=== PATIENT | female | born 1955 | race Caucasian/White ===

== ENCOUNTER 2019-12-02 05:29 | Day surgery (SDC) | payer MEDICARE, BC ==
[2019-11-29 12:37] LABS: BASOPHILS # (AUTO) 0.07 x10^3/uL (0-0.1); BASOPHILS % (AUTO) 2 % (0-1); EOSINOPHILS # (AUTO) 0.38 x10^3/uL (0-0.4); EOSINOPHILS % (AUTO) 8 % (1-7); LYMPHOCYTES # (AUTO) 1.67 x10^3/uL (1-3.4); LYMPHOCYTES % (AUTO) 36 % (22-44); MD NO; MEAN CORPUSCULAR HEMOGLOBIN 28.5 pg (27.0-34.8); MEAN CORPUSCULAR HGB CONC 33.2 g/dL (32.4-35.8); MEAN CORPUSCULAR VOLUME 85.8 fL (80-100); MEAN PLATELET VOLUME 8.3 fL (7.4-10.4); MONOCYTES # (AUTO) 0.61 x10^3/uL (0.2-0.8); MONOCYTES % (AUTO) 13 % (2-9); NEUTROPHILS % (AUTO) 41 % (42-75); PLATELET COUNT 304 x10^3/uL (130-400); RED BLOOD COUNT 4.66 x10^6/uL (3.82-5.3); RED CELL DISTRIBUTION WIDTH 14.4 % (9.6-15.2)
[2019-11-29 12:45] LABS: INTERNATIONAL NORMALIZED RATIO 0.95 (0.93-1.1); PROTHROMBIN TIME 10.1 Seconds (9.6-11.5)
[2019-11-29 12:49] LABS: ALANINE AMINOTRANSFERASE 20 U/L (12-78); ALBUMIN 3.7 g/dL (3.4-5.0); ANION GAP 7 mmol/L (5-15); CALCIUM 8.3 mg/dL (8.5-10.1); CHLORIDE 109 mmol/L (98-107); CREATININE 0.74 mg/dL (0.55-1.02)
[2019-11-29 12:52] LABS: ALKALINE PHOSPHATASE 91 U/L (45-117); BILIRUBIN,TOTAL 0.4 mg/dL (0.2-1.0); TOTAL PROTEIN 7.1 g/dL (6.4-8.2)
[~2019-12-02] VITALS: Ht 162.6 cm; Wt 81.1 kg
[~2019-12-02 05:29] MED LIST: ADAL40PE7 INJ; ASCO10004 PO; ASPI-496 PO; CARV12.52 PO; CHOL400T10 PO; DIPH25CA61 PO; FOLI0.8T2 PO; HYDR200T72 PO; LEFL10TA14 PO; LEVO100T5 PO; LISI-170 PO; LORA10TA75 PO; OMEG1CAP23 PO; PRAV40TA2 PO; TRAM50TA2 PO; TRIA15CR2 TP; VITA100T6 PO
[2019-12-02 06:19] VITALS: BP 174/100
[2019-12-02] MEDS ORDERED: LACTATED RINGERS 1,000 ML IV SCH (06:22)
[2019-12-02] MEDS ORDERED: CEFOTETAN PMX 2GM/50ML 50 ML IV ONE (06:30)
[2019-12-02] MEDS ORDERED: BUPIVACAINE/PF-EPI 0.25% 1:200K ONE (06:36)
[2019-12-02] MEDS ORDERED: INDOCYANINE GREEN 25 MG VIAL ONE (06:37)
[2019-12-02] MEDS ORDERED: HEPARIN 1,000 UNITS/ML, 10ML ONE (06:37)
[2019-12-02 06:50] VITALS: BP 156/99
[2019-12-02] MEDS ORDERED: ACETAMINOPHEN 500 MG TABLET PO ONE (07:00)
[2019-12-02] MEDS ORDERED: GABAPENTIN 300 MG CAPSULE PO ONE (07:00)
[2019-12-02] MEDS ORDERED: FAMOTIDINE 20 MG TABLET PO ONE (07:00)
[2019-12-02] MEDS ORDERED: OxyconTIN ER 20 MG TAB.ER PO ONE (07:00)
[2019-12-02] MEDS ORDERED: MIDAZOLAM 1 MG/ML, 2ML ONE (07:05)
[2019-12-02] MEDS ORDERED: FENTANYL PF 250 MCG/5ML ONE (07:05)
[2019-12-02] MEDS ORDERED: PROPOFOL 10 MG/ML, 20ML ONE (07:07)
[2019-12-02] MEDS ORDERED: DEXAMETHASONE 4 MG/ML, 1ML ONE ×2 (07:12)
[2019-12-02] MEDS ORDERED: ONDANSETRON 2MG/ML, 2ML ONE ×2 (07:12)
[2019-12-02] MEDS ORDERED: OXYcodone 5 MG/5 ML ORAL.SOL UDC PO PRN (08:00)
[2019-12-02] MEDS ORDERED: MEPERIDINE/PF 25MG/ML,1ML IVPush PRN (08:00)
[2019-12-02] MEDS ORDERED: HYDROmorphone 2 MG/ML, 1ML IVPush PRN (08:00)
[2019-12-02] MEDS ORDERED: FENTANYL PF 100 MCG/2ML IV PRN (08:00)
[2019-12-02] MEDS ORDERED: PROMETHAZINE 25 MG/ML, 1ML IV PRN (08:00)
[2019-12-02] MEDS ORDERED: hydrALAzine 20 MG/ML, 1ML IV PRN (08:00)
[2019-12-02] MEDS ORDERED: LABETALOL 5MG/ML, 20ML IV PRN (08:00)
[2019-12-02] MEDS ORDERED: ONDANSETRON 2MG/ML, 2ML IV PRN (08:00)
[2019-12-02] MEDS ORDERED: EPHEDRINE 50 MG/ML, 1ML ONE (08:04)
[2019-12-02] MEDS ORDERED: hydrALAzine 20 MG/ML, 1ML ONE (08:26)
[2019-12-02] MEDS ORDERED: NEOSTIGMINE 1 MG/ML, 10ML ONE (09:08)
[2019-12-02] MEDS ORDERED: GLYCOPYRROLATE 0.2MG/1ML, 5ML ONE (09:08)
[2019-12-02] MEDS ORDERED: ROCURONIUM 10MG/ML,5ML ONE (15:11)
== END 2019-12-02 12:45 | disposition home or self-care (01) ==
LOC: OR 05:29 → OUT 12:45
PROVIDERS: ATTEND Specialist
DX: Z40.02 Encounter for prophylactic removal of ovary(s) (principal); Z15.01 Genetic susceptibility to malignant neoplasm of breast; N87.9 Dysplasia of cervix uteri, unspecified; N88.8 Other specified noninflammatory disorders of cervix uteri; N84.0 Polyp of corpus uteri; D25.9 Leiomyoma of uterus, unspecified; I10 Essential (primary) hypertension; E03.9 Hypothyroidism, unspecified; M06.9 Rheumatoid arthritis, unspecified; Z79.890 Hormone replacement therapy; Z79.4 Long term (current) use of insulin; Z79.82 Long term (current) use of aspirin; Z79.899 Other long term (current) drug therapy; Z80.3 Family history of malignant neoplasm of breast; Z80.41 Family history of malignant neoplasm of ovary
CPT/HCPCS: 36415; 58552; 71046; 80053; 85025; 85610; 85730; 86850; 86900; 86923; 88112; 88305; 88307; 93005; J0360; J1100; J1644; J2250; J2405; J2704; J2710; J3010; J3490; J7120